=== PATIENT | male | born 1965 | race American Indian/Alaskan Native ===

== ENCOUNTER 2017-11-04 16:52 | Emergency (ER) | payer SELFPAY ==
[2017-11-04] MEDS ORDERED: CATAPRES ONE (20:56)
[2017-11-05 00:35] LABS: Basophils # (Auto) 0.1 K/mm3 (0.0-0.1); Basophils % (Auto) 1.9 % (0.0-1.8); Eosinophils # (Auto) 0.2 K/mm3 (0.0-0.4); Eosinophils % (Auto) 3.4 % (0.0-4.3); Hematocrit 40.1 % (35.5-45.6); Hemoglobin 13.2 gm/dl (11.8-15.2); Lymphocytes # (Auto) 2.1 K/mm3 (1.2-5.4); Lymphocytes % (Auto) 41.4 % (13.4-35.0); Mean Corpuscular HGB Conc 33 % (32-34); Mean Corpuscular Hemoglobin 29 pg (28-32); Mean Corpuscular Volume 87 fl (84-94); Monocytes # (Auto) 0.3 K/mm3 (0.0-0.8); Monocytes % (Auto) 6.8 % (0.0-7.3); Platelet Count 217 K/mm3 (140-440); Red Blood Count 4.62 M/mm3 (3.65-5.03)
--- NOTE | 2017-11-05 00:42 | Emergency Department Report ---
HPI - General Chief Complaint: High BP Time Seen by Provider: 11/05/17 00:19 - HPI HPI: 52-year-old -[place] male was brought to the ED with elevated blood pressure. Patient went to donate blood and it was found that his BP was 200/ 100. He complains of mild headache, but no vision disturbances, no chest pain, no shortness of breath, he is able to ambulate, perform his ADLs without difficulty. He only came to ED because he was referred to. ED Past Medical Hx - Past Medical History Hx Hypertension: Yes - Surgical History Past Surgical History?: No - Social History Smoking Status: Current Every Day Smoker Substance Use Type: Alcohol - Medications Home Medications: Home Medications Medication Instructions Recorded Confirmed Last Taken Type amLODIPine [Norvasc] 10 mg PO DAILY #30 tab 11/05/17 Unknown Rx cloNIDine [Catapres] 0.1 mg PO BID #60 tablet 11/05/17 Unknown Rx ED Review of Systems ROS: Stated complaint: HYPERTENSIVE Other details as noted in HPI Comment: All other systems reviewed and negative Cardiovascular: denies: chest pain, dyspnea on exertion Genitourinary: denies: urgency, dysuria Skin: denies: rash, lesions Neurological: headache Physical Exam - Physical Exam Vital Signs: Vital Signs 11/04/17 17:18 Temperature 98.5 F Pulse Rate 72 Respiratory 16 Rate Blood Pressure 207/117 O2 Sat by Pulse 99 Oximetry Physical Exam: - Physical Exam Physical Exam: - General Limitations: No Limitations General appearance: alert, in no apparent distress, obese - Head Head exam: Present: atraumatic, normocephalic - Eye Eye exam: Present: normal appearance - ENT ENT exam: Present: mucous membranes moist - Neck Neck exam: Present: normal inspection - Respiratory Respiratory exam: Present: normal lung sounds bilaterally. Absent: respiratory distress - Cardiovascular Cardiovascular Exam: Present: normal rhythm, tachycardia. Absent: systolic murmur, diastolic murmur, rubs, gallop - GI/Abdominal GI/Abdominal exam: Present: soft, normal bowel sounds - Extremities Exam Extremities exam: Present: normal inspection - Back Exam Back exam: Present: normal inspection - Neurological Exam Neurological exam: Present: alert, oriented X3 - Psychiatric Psychiatric exam: normal affect and mood - Skin Skin exam: Present: warm, dry, intact, normal color. Absent: rash ED Course Vital Signs 11/04/17 17:18 Temperature 98.5 F Pulse Rate 72 Respiratory 16 Rate Blood Pressure 207/117 O2 Sat by Pulse 99 Oximetry ED Medical Decision Making - Lab Data Result diagrams: 11/05/17 00:25 11/05/17 00:25 Critical care attestation.: If time is entered above; I have spent that time in minutes in the direct care of this critically ill patient, excluding procedure time. ED Disposition Clinical Impression: Hypertension Qualifiers: Hypertension type: essential hypertension Qualified Code(s): I10 - Essential ( primary) hypertension Disposition: - TO HOME OR SELFCARE Is pt being admited?: No Does the pt Need Aspirin: No Condition: Stable Instructions: Hypertension (ED) Prescriptions: amLODIPine [Norvasc] 10 mg PO DAILY #30 tab cloNIDine [Catapres] 0.1 mg PO BID #60 tablet Referrals: PRIMARY CARE, [Primary Care Provider] - 3-5 Days
[2017-11-05 00:49] LABS: Alanine Aminotransferase 23 units/L (7-56); Albumin 3.8 g/dL (3.9-5); BUN/Creatinine Ratio 19; Blood Urea Nitrogen 25 mg/dL (9-20); Hemolysis Index 4
[2017-11-05 01:17] VITALS: BP 148/74
[2017-11-05] MEDS ORDERED: CATAPRES PO ONE (03:11)
== END 2017-11-05 01:17 | disposition home or self-care (01) ==
LOC: ED 16:52
DX: I10 Essential (primary) hypertension (principal); F17.200 Nicotine dependence, unspecified, uncomplicated
CPT/HCPCS: 36415; 80053; 85025; 99283

== ENCOUNTER 2019-09-13 11:55 | Emergency (ER) | payer SELFPAY ==
--- NOTE | 2019-09-13 14:12 | Emergency Department Report ---
Chief Complaint: High BP Stated Complaint: HBP - HPI History of Present Illness: 54 y/o male with htn crack use, non complaint w medications p/w headache, global, not sudden not thunderclap no neck pain no neck stiffness also complains of ht, found on free medical screening at [facility] unit will rx his meds ct head ck, bmp counseled not to do crack gcs 15 nih score 0 physical otherwise wnl pleasant and calm ok for minor care bp chronic Vital Signs 09/13/19 14:09 Temperature 97.8 F Pulse Rate 80 Respiratory 20 Rate Blood Pressure 201/109 O2 Sat by Pulse 98 Oximetry MSE screening note: Focused history and physical exam performed. Due to findings the following was ordered: ED Disposition for MSE Condition: Stable
[2019-09-13] MEDS ORDERED: cloNIDine 0.1 MG TAB PO ONE (14:17)
[2019-09-13] MEDS ORDERED: amLODIPine 10 MG TAB PO SCH ×2 (14:18→15:00)
[2019-09-13] MEDS ORDERED: cloNIDine 0.1 MG TAB PO SCH (15:00)
[2019-09-13 16:56] LABS: BUN/Creatinine Ratio 15; Blood Urea Nitrogen 20 mg/dL (9-20); Calcium 9.7 mg/dL (8.4-10.2); Hemolysis Index 5
[2019-09-13 17:31] VITALS: BP 185/112
--- NOTE | 2019-09-13 17:36 | Emergency Department Report ---
ED Chest Pain HPI - General Chief Complaint: High BP Stated Complaint: HBP Time Seen by Provider: 09/13/19 16:06 Source: patient Mode of arrival: Ambulatory Limitations: No Limitations - History of Present Illness Initial Comments: This is a 54-year-old -[place] male who presents to the emergency room with a headache and elevated blood pressure for several days. Past medical history of hypertension and polysubstance abuse. Patient states he stopped taking medication 3-4 months ago because he could no longer afford medication. He denies palpitations, visual changes, headache, cough, fever, chills, nausea, vomiting, or weakness. MD Complaint: chest pain Severity scale (0 -10): 0 - Related Data Previous Rx's Medication Instructions Recorded Last Taken Type amLODIPine 10 mg PO DAILY #30 tab 11/05/17 Unknown Rx cloNIDine [Catapres] 0.1 mg PO BID #60 tablet 11/05/17 Unknown Rx Allergies Allergy/AdvReac Type Severity Reaction Status Date / Time No Known Allergies Allergy Verified 09/13/19 11:57 ED Review of Systems ROS: Stated complaint: HBP Other details as noted in HPI ED Past Medical Hx - Past Medical History Hx Hypertension: Yes - Social History Smoking Status: Current Every Day Smoker Substance Use Type: Alcohol, Cocaine - Medications Home Medications: Home Medications Medication Instructions Recorded Confirmed Last Taken Type amLODIPine 10 mg PO DAILY #30 tab 11/05/17 Unknown Rx cloNIDine [Catapres] 0.1 mg PO BID #60 tablet 11/05/17 Unknown Rx ED Physical Exam - General Limitations: No Limitations ED Course Vital Signs 09/13/19 09/13/19 14:09 17:21 Temperature 97.8 F 98.0 F Pulse Rate 80 69 Respiratory 20 14 Rate Blood Pressure 201/109 Blood Pressure 185/112 [Right] O2 Sat by Pulse 98 99 Oximetry ED Medical Decision Making - Lab Data Result diagrams: 09/13/19 16:06 Critical care attestation.: If time is entered above; I have spent that time in minutes in the direct care of this critically ill patient, excluding procedure time. ED Disposition Condition: Stable Referrals: PRIMARY CARE, [Primary Care Provider] - 3-5 Days
--- NOTE | 2019-09-13 17:38 | Emergency Department Report ---
ED General Adult HPI - General Chief complaint: High BP Stated complaint: HBP Time Seen by Provider: 09/13/19 16:06 Source: patient Mode of arrival: Ambulatory Limitations: No Limitations - History of Present Illness Initial comments: This is a 54-year-old -[place] male who presents to the emergency room with a headache and elevated blood pressure for several days. Past medical history of hypertension and polysubstance abuse. Patient states he stopped taking medication 3-4 months ago because he could no longer afford medication. He denies chest pain, palpitations, visual changes, headache, cough, fever, chills, nausea, vomiting, or weakness. Severity scale (0 -10): 0 Associated Symptoms: denies other symptoms Treatments Prior to Arrival: none - Related Data Previous Rx's Medication Instructions Recorded Last Taken Type cloNIDine [Catapres] 0.1 mg PO BID #60 tablet 11/05/17 Unknown Rx amLODIPine 10 mg PO DAILY #30 tab 09/13/19 Unknown Rx Allergies Allergy/AdvReac Type Severity Reaction Status Date / Time No Known Allergies Allergy Verified 09/13/19 11:57 ED Review of Systems ROS: Stated complaint: HBP Other details as noted in HPI Constitutional: denies: chills, fever Respiratory: denies: cough, shortness of breath, wheezing Cardiovascular: denies: chest pain, palpitations Gastrointestinal: denies: abdominal pain, nausea, diarrhea Skin: denies: rash, lesions Neurological: headache. denies: weakness, paresthesias Psychiatric: denies: anxiety, depression ED Past Medical Hx - Past Medical History Hx Hypertension: Yes - Social History Smoking Status: Current Every Day Smoker Substance Use Type: Alcohol, Cocaine - Medications Home Medications: Home Medications Medication Instructions Recorded Confirmed Last Taken Type cloNIDine [Catapres] 0.1 mg PO BID #60 tablet 11/05/17 Unknown Rx amLODIPine 10 mg PO DAILY #30 tab 09/13/19 Unknown Rx ED Physical Exam - General Limitations: No Limitations General appearance: alert, in no apparent distress - ENT ENT exam: Present: mucous membranes moist - Respiratory Respiratory exam: Present: normal lung sounds bilaterally. Absent: respiratory distress - Cardiovascular Cardiovascular Exam: Present: regular rate, normal rhythm. Absent: systolic murmur, diastolic murmur, rubs, gallop - GI/Abdominal GI/Abdominal exam: Present: soft, normal bowel sounds. Absent: distended, tenderness, guarding, rebound, rigid - Extremities Exam Extremities exam: Present: normal inspection - Neurological Exam Neurological exam: Present: alert, oriented X3, normal gait - Psychiatric Psychiatric exam: Present: normal affect, normal mood - Skin Skin exam: Present: warm, dry, intact, normal color. Absent: rash ED Course Vital Signs 09/13/19 09/13/19 14:09 17:21 Temperature 97.8 F 98.0 F Pulse Rate 80 69 Respiratory 20 14 Rate Blood Pressure 201/109 Blood Pressure 185/112 [Right] O2 Sat by Pulse 98 99 Oximetry ED Medical Decision Making - Lab Data Result diagrams: 09/13/19 16:06 Lab Results 09/13/19 Range/Units 16:06 Sodium 141 (137-145) mmol/L Potassium 3.9 (3.6-5.0) mmol/L Chloride 103.5 (98-107) mmol/L Carbon Dioxide 27 (22-30) mmol/L Anion Gap 14 mmol/L BUN 20 (9-20) mg/dL Creatinine 1.3 (0.8-1.5) mg/dL Estimated GFR > 60 ml/min BUN/Creatinine Ratio 15 % Glucose 107 H (75-100) mg/dL Calcium 9.7 (8.4-10.2) mg/dL Magnesium 2.10 (1.7-2.3) mg/dL Total Creatine Kinase 206 H (55-170) units/L - Radiology Data Radiology results: report reviewed CT BRAIN: 09/13/2019 INDICATION / CLINICAL INFORMATION: headache htn. COMPARISON: None available. FINDINGS: BRAIN/INTRACRANIAL STRUCTURES: Unenhanced CT images of the brain demonstrate no evidence of acute intracranial abnormality. Ventricles and sulci are prominent in size, consistent with some diffuse cerebral atrophy. Extensive chronic white matter hypoattenuation is present throughout the cerebral hemispheric white matter. A prominent chronic lacunar infarct is present in the left central crissy. There is no evidence of acute large vessel territory ischemic injury, hemorrhage, or mass. There are no abnormal extra-axial fluid collections. Atherosclerotic vascular calcifications are present in the distal internal carotid arteries and vertebral arteries. EXTRACRANIAL STRUCTURES: Incidental note is made of a prominent lipoma in the left suboccipital scalp region. IMPRESSION: No acute intracranial abnormality. Extensive chronic white matter hypoattenuation. Old left pontine infarct. - Medical Decision Making This is a 54 y.o. male that presents with headache and elevated blood pressure for 3 days. History of HTN and polysubstance abuse. Patient noncompliant with medication and discontinue 3-4 months. Patient is without confusion, chest pain, hematuria, or SOB. Given antihypertensives. Workup: BMP, CK, and CT of h ead. All labs are unremarkable. CT of head with no acute intracranial abnormality. Extensive chronic white matter hypoattenuation. Old left pontine infarct. Doubt CV, AMI, heart failure, renal infarction or failure or other end organ damage. He reports feeling better. Discussed with patient their elevated blood pressure and need for close outpatient management of their hypertension. Start amlodipine 10 mg by mouth daily. Follow up in a primary care clinic. No further questions noted by the patient. Discharged home in stable condition. Critical care attestation.: If time is entered above; I have spent that time in minutes in the direct care of this critically ill patient, excluding procedure time. ED Disposition Clinical Impression: Uncontrolled hypertension Headache Qualifiers: Headache type: tension-type Headache chronicity pattern: acute headache Intractability: not intractable Qualified Code(s): G44.209 - Tension-type headache, unspecified, not intractable Disposition: DC-01 TO HOME OR SELFCARE Is pt being admited?: No Condition: Stable Instructions: Tension Headache (ED), Hypertension (ED) Additional Instructions: Encourage stop smoking to reduce cardiovascular risk. Moderate caffeine consumption is acceptable. Begin and maintain aerobic exercise, with a goal of at least 30 minutes of moderate intensity, dynamic aerobic exercise (walking, jogging, cycling, or swimming) 5 days per week to total 150 minutes as tolerated or recommended by a physician. Take medication daily as prescribed. Follow up with Primary Care Provider in 1 week. Prescriptions: amLODIPine 10 mg PO DAILY #30 tab Referrals: HÉCTOR MARCUS MD [Staff Physician] - 3-5 Days [facility] [Outside] - 3-5 Days [facility] [Outside] - 3-5 Days Forms: Work/School Release Form(ED) Time of Disposition: 18:51
--- NOTE | 2019-09-13 18:22 | Cat Scan Report ---
CT BRAIN: 09/13/2019 INDICATION / CLINICAL INFORMATION: headache htn. COMPARISON: None available. FINDINGS: BRAIN/INTRACRANIAL STRUCTURES: Unenhanced CT images of the brain demonstrate no evidence of acute int racranial abnormality. Ventricles and sulci are prominent in size, consistent with some diffuse cerebral atrophy. Extensive chronic white matter hypoattenuation is present throughout the cerebral hemispheric white m atter. A prominent chronic lacunar infarct is present in the left central crissy. There is no evidence of acute large vessel territory ischemic injury, hemorrhage, or mass. There are no abnormal extra-axial fluid collections. Atherosclerotic vascular calcifications are present in the distal internal carotid arteries and verte bral arteries. EXTRACRANIAL STRUCTURES: Incidental note is made of a prominent lipoma in the left suboccipital scalp region. IMPRESSION: No acute intracranial abnormality. Extensive chronic white matter hypoattenuation. Old left pontine infarct. All CT scans at this location are performed using dose reduction to ALARA by means of automated expos ure control. Signer Name: Yo Dietrich MD Signed: 09/13/2019 6:17 PM Workstation Name: [id number]
== END 2019-09-13 19:15 | disposition home or self-care (01) ==
LOC: ED 11:55
DX: R51 Headache (principal); I10 Essential (primary) hypertension; F17.200 Nicotine dependence, unspecified, uncomplicated; F14.10 Cocaine abuse, uncomplicated; Z79.899 Other long term (current) drug therapy
CPT/HCPCS: 36415; 70450; 80048; 82550; 83735